=== PATIENT | male | born 1975 | race Hispanic/Latino ===

== ENCOUNTER 2016-12-17 09:17 | Emergency (ER) | payer OTHER ==
[2016-12-17 09:17] VITALS: BMI 35.5
[2016-12-17 09:43] VITALS: BP 116/65; PULSE 80; RESP 16; TEMP 98.1; O2SAT 97
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
[2016-12-17] MEDS ORDERED: TDAP Vaccine 0.5 mL Syr IM ONE (09:59)
[2016-12-17] MEDS ORDERED: Amoxicillin-Clav 875-125 mg Tab PO STA (10:00)
[2016-12-17] MEDS ORDERED: Amoxicillin-Clav 875-125 mg Tab PO ONE (10:02)
== END 2016-12-17 10:11 | disposition home or self-care (01) ==
LOC: H.ER 09:17
DX: T14.8 Other injury of unspecified body region (principal); Y04.1XXA Assault by human bite, initial encounter; Y99.0 Civilian activity done for income or pay

== ENCOUNTER 2018-10-19 15:17 | Emergency (ER) | payer BC, OTHER ==
[2018-10-19 15:17] VITALS: BMI 35.5
--- NOTE | 2018-10-19 16:23 | ED PDOC ---
HPI: General Adult Time Seen by Provider: 10/19/18 15:56 Chief Complaint (Nursing): Dizziness/Lightheaded Chief Complaint (Provider): Dizziness/Lightheaded History Per: Patient History/Exam Limitations: no limitations Onset/Duration Of Symptoms: Hrs (x1) Additional Complaint(s): 43 year old male with a history of hypertension presents to the ED with sudden onset dizziness while sitting at home around 3pm and lasted for 20 minutes. Patient repots a spinning sensation that he felt especially when he got up. He reports nausea, but no vomiting during the episode. When it was severe, he got sweaty and thought he may pass out. He denies any chest pain, shortness of breath, focal weakness, blurry vision, difficultly speaking, or unsteady gait. Patient reports mild headache but denies any recent illnesses or travel. He states he felt fine prior to onset. On provider evaluation, symptoms are mild. Patient has a stress test and Echos in last 4 months which have all been negative. PMD: Dr. Betancourt Dorothy Past Medical History Reviewed: Historical Data, Nursing Documentation, Vital Signs Vital Signs: Last Vital Signs Temp 98.1 F 10/19/18 15:26 Pulse 81 10/19/18 15:26 Resp 19 10/19/18 15:26 BP 112/72 10/19/18 15:26 Pulse Ox 100 10/19/18 15:26 - Medical History PMH: HTN - Surgical History Other surgeries: bilateral bicep tendon repair - Family History Family History: States: Hypertension - Social History Current smoker - smoking cessation education provided: No Ex-Smoker (has not smoked in the last 12 months): No Alcohol: None Drugs: Denies - Immunization History Hx Tetanus Toxoid Vaccination: No Hx Influenza Vaccination: No Hx Pneumococcal Vaccination: No - Home Medications Home Medications: Ambulatory Orders Medication Instructions Recorded Ibuprofen [Motrin] 600 mg PO Q8 #20 tab 09/19/15 Amoxicillin/Clavulanate [Augmentin 1 tab PO BID #13 tab 12/17/16 875 MG-125 MG] Meclizine HCl 50 mg PO BID PRN #30 tablet 10/19/18 Ondansetron ODT [Zofran ODT] 1 odt PO Q6 PRN #20 odt 10/19/18 - Allergies Allergies/Adverse Reactions: Allergies Allergy/AdvReac Type Severity Reaction Status Date / Time iodine Allergy RASH Verified 07/25/15 17:24 shellfish derived Allergy RASH Verified 12/17/16 09:36 Review of Systems ROS Statement: Except As Marked, All Systems Reviewed And Found Negative Constitutional: Positive for: Sweats Eyes: Negative for: Vision Change Cardiovascular: Negative for: Chest Pain Respiratory: Negative for: Shortness of Breath Gastrointestinal: Positive for: Nausea. Negative for: Vomiting Neurological: Positive for: Headache (mild), Dizziness, Other (no unsteady gait). Negative for: Weakness, Change in Speech Physical Exam - Reviewed Nursing Documentation Reviewed: Yes Vital Signs Reviewed: Yes - Physical Exam Appears: Positive for: Well, No Acute Distress Head Exam: Positive for: ATRAUMATIC, NORMOCEPHALIC Skin: Positive for: Warm, Dry Eye Exam: Positive for: Normal appearance, EOMI, PERRL. Negative for: Nystagmus ENT: Positive for: Pharynx Is (clear), Other (dry mucous membranes) Neck: Positive for: Painless ROM, Supple Cardiovascular/Chest: Positive for: Regular Rate, Rhythm. Negative for: Murmur Respiratory: Positive for: Normal Breath Sounds. Negative for: Respiratory Distress Gastrointestinal/Abdominal: Positive for: Soft. Negative for: Tenderness Back: Positive for: Normal Inspection. Negative for: Decreased ROM Extremity: Positive for: Normal ROM. Negative for: Deformity Lymphatic: Negative for: Adenopathy Neurological/Psych: Positive for: Awake, Alert, Oriented (x3), Cerebellar Tests (normal), Other (Hercules-Hallpike test is positive in eliciting vertigo from left to right ). Negative for: Motor/Sensory Deficits - Laboratory Results Result Diagrams: 10/19/18 16:38 10/19/18 16:38 - ECG ECG: Positive for: Interpreted By Me ECG Rhythm: Positive for: Normal QRS, Normal ST Segment, Sinus Rhythm (@66) O2 Sat by Pulse Oximetry: 100 (RA) Pulse Ox Interpretation: Normal Medical Decision Making Medical Decision Making: Time: 1553 Impression: Vertigo Differential diagnoses include but are not limited to: intracranial mass, TIA, electrolyte abnormalities, anemia, and dehydration Plan: --Type and screen --CT head w/o contrast --EKG --CMP --Magnesium --Phosphorus --TSH --Troponin --U dip --CBC --PTT --PT/INR --Antivert 50 mg PO --Glucose Time: 1655 CT Head: FINDINGS: HEMORRHAGE: No acute parenchymal, subarachnoid or extra-axial hemorrhage. BRAIN: No evidence of large acute infarct. No obvious parenchymal nor extra-axial mass seen on this noncontrast exam. Cisterna magna is enlarged felt to represent rina cisterna magna. Mild generalized volume loss. VENTRICLES: No obstructive hydrocephalus. CALVARIUM: Calvarium intact. PARANASAL SINUSES: Left aspect frontal sinus is slightly hypoplastic. There is minor mucosal thickening left chamber sphenoid sinus. MASTOID AIR CELLS: Unremarkable as visualized. No inflammatory changes. OTHER FINDINGS: None. IMPRESSION: No acute intracranial hemorrhage. Mild generalized volume loss. Rina cisterna magna. Labs demonstrate leukocytosis. No emergently significant abnormalities Stable for discharge. F/u ENT for vertigo. ScribeAttestation: Documented byMakeda Sands, acting as a scribe for Carmen Michaud MD. Provider ScribeAttestation: All medical record entries made by the Scribe were at my direction and personally dictated by me. I have reviewed the chart and agree that the record accurately reflects my personal performance of the history, physical exam, medical decision making, and the department course for this patient. I have also personally directed, reviewed, and agree with the discharge instructions and disposition. Disposition - Clinical Impression Clinical Impression: Vertigo - Disposition Disposition: Routine/Home Disposition Time: 18:03 Condition: STABLE Additional Instructions: FOLLOWUP WITH ENT NEXT WEEK FOR FURTHER EVALUATION Prescriptions: Meclizine HCl 50 mg PO BID PRN #30 tablet PRN Reason: Dizziness Ondansetron ODT [Zofran ODT] 1 odt PO Q6 PRN #20 odt PRN Reason: Nausea/Vomiting Instructions: Vertigo (a Type of Dizziness) (DC)
[2018-10-19 16:52] LABS: BASO # 0.1 K/uL (0.0-0.2); BASO % 0.8 % (0.0-2.0); EOS # 0.1 K/uL (0.0-0.7); EOS % 0.4 % (0.0-4.0); HEMOGLOBIN 14.5 g/dL (12.0-18.0); LYMPH # 1.2 K/uL (1.0-4.3); LYMPH % 8.2 % (20.0-40.0); MEAN CELL VOLUME 84.8 fl (80.0-94.0); MEAN CORPUSCULAR HEMOGLOBIN 27.8 pg (27.0-31.0); MEAN CORPUSCULAR HGB CONC 32.8 g/dL (33.0-37.0); MEAN PLATELET VOLUME 7.2 fl (7.2-11.7); MONO # 0.6 K/uL (0.0-0.8); MONO % 4.4 % (0.0-10.0); NEUT # 12.3 K/uL (1.8-7.0); NEUT % 86.2 % (50.0-75.0); PLATELET COUNT 340 K/uL (130-400); RBC 5.23 Mil/uL (4.40-5.90); RED CELL DISTRIBUTION WIDTH 14.2 % (11.5-14.5)
[2018-10-19 16:55] LABS: PROTHROMBIN TIME 11.9 Seconds (9.8-13.1)
[2018-10-19 16:58] LABS: PARTIAL THROMBOPLASTIN TIME 27.3 Seconds (25.6-37.1)
--- NOTE | 2018-10-19 16:58 | CT ---
Date of service: 10/19/2018 PROCEDURE: CT HEAD WITHOUT CONTRAST. HISTORY: Headache nausea and dizziness in a patient with history of hypertension COMPARISON: None available. TECHNIQUE: Axial computed tomography images were obtained through the head/brain without intravenous contrast. Radiation dose: Total exam DLP = 892.53 mGy-cm. This CT exam was performed using one or more of the following dose reduction techniques: Automated exposure control, adjustment of the mA and/or kV according to patient size, and/or use of iterative reconstruction technique. FINDINGS: HEMORRHAGE: No acute parenchymal, subarachnoid or extra-axial hemorrhage. BRAIN: No evidence of large acute infarct. No obvious parenchymal nor extra-axial mass seen on this noncontrast exam. Cisterna magna is enlarged felt to represent rina cisterna magna. Mild generalized volume loss. VENTRICLES: No obstructive hydrocephalus. CALVARIUM: Calvarium intact. PARANASAL SINUSES: Left aspect frontal sinus is slightly hypoplastic. There is minor mucosal thickening left chamber sphenoid sinus. MASTOID AIR CELLS: Unremarkable as visualized. No inflammatory changes. OTHER FINDINGS: None. IMPRESSION: No acute intracranial hemorrhage. Mild generalized volume loss. Rina cisterna magna.
[2018-10-19 17:00] LABS: BLOOD UREA NITROGEN 12 mg/dl (9-20); GFR NON-AFRICAN AMERICAN > 60
[2018-10-19 17:01] LABS: ALB/GLOB RATIO 1.2 (1.0-2.1); ALBUMIN 4.6 g/dL (3.5-5.0); ALT/SGPT 46 U/L (21-72); AST/SGOT 37 U/L (17-59); CALCIUM 9.5 mg/dL (8.4-10.2)
[2018-10-19 17:15] LABS: WHITE BLOOD COUNT 14.2 K/uL (4.8-10.8)
[2018-10-19 18:21] VITALS: BP 123/76; PULSE 74; RESP 16; TEMP 98.4; O2SAT 99
[2018-10-19 18:23] LABS: BASOPHIL 1 % (0-2); EOSINOPHIL 1 % (0-7); LYMPHOCYTE 9 % (20-50); MONOCYTE 5 % (0-10); NEUTROPHIL 84 % (42-75); PLATELET ESTIMATE NORMAL (NORMAL); TOTAL CELLS COUNTED 100
--- NOTE | 2018-10-20 09:28 | CARD ---
APPROVED REPORT Date of service: 10/19/2018 EKG Measurement Heart [id number] <Conclusion> Normal sinus rhythm Incomplete right bundle branch block Borderline ECG
== END 2018-10-19 18:20 | disposition home or self-care (01) ==
LOC: H.ER 15:17
DX: R42 Dizziness and giddiness (principal); I10 Essential (primary) hypertension; Z87.891 Personal history of nicotine dependence